=== PATIENT | female | born 1990 | race African-American/Black ===

== ENCOUNTER 2016-08-23 19:33 | Emergency (ER) | payer OTHER ==
--- NOTE | 2016-08-23 20:34 | ER Document Report ---
HPI - HPI Patient complains to provider of: cut left thumb Onset: Just prior to arrival Onset/Duration: Sudden Pain Level: 1 Context: 26-year-old female cut her proximal phalanx left thumb with a knife at work at the [employer] Tetanus has been within the last 5 years. Associated Symptoms: None Exacerbated by: Denies Relieved by: Denies Similar symptoms previously: No Recently seen / treated by doctor: No - ROS ROS below otherwise negative: Yes Systems Reviewed and Negative: Yes All other systems reviewed and negative - REPRODUCTIVE Reproductive: DENIES: : - DERM Skin Color: Normal Past Medical History - General Information source: Patient - Social History Smoking Status: Unknown if Ever Smoked Frequency of alcohol use: None Drug Abuse: None Lives with: Family Family History: Reviewed & Not Pertinent Patient has suicidal ideation: No Patient has homicidal ideation: No - Medical History Medical History: Negative Renal/ Medical History: Denies: Hx Peritoneal Dialysis Surgical Hx: Negative - Immunizations Hx Diphtheria, Pertussis, Tetanus Vaccination: - unknown Vertical Provider Document - CONSTITUTIONAL Agree With Documented VS: Yes Exam Limitations: No Limitations - INFECTION CONTROL TRAVEL OUTSIDE OF THE [place] IN LAST 30 DAYS: No - HEENT HEENT: Normocephalic - NECK Neck: Supple - RESPIRATORY O2 Sat by Pulse Oximetry: 100 - MUSCULOSKELETAL/EXTREMETIES Musculoskeletal/Extremeties: Tender - 1.5 cm full thickness horozontal cut to landrum aspectleft mid proximal phalanx, CAN"T flex at the PIP joint. sensation intact - NEURO Level of Consciousness: Awake, Alert, Appropriate Motor/Sensory: No Sensory Deficit, Other - flexor tendon cut - DERM Integumentary: Warm, Dry, Laceration - see above Course - Re-evaluation Re-evalutation: 08/23/16 20:[address] Hood and then Dr. Fisher who is production control planner for the emergency room, I explained to him that she cut her left thumb flexor tendon and that she cannot flex at the PIP joint. He stated to put her on Keflex, clean the wound closed the wound and splint her in extension. Explained this to the patient and how important it was that she did go to his office 8:00 Wednesday as he instructed. He also stated that she cn call Wednesday to see if Dr. Johnson can see her before Wednesday at 8:00. - Vital Signs Vital signs: Temp Pulse Resp BP Pulse Ox 98.1 F 96 12 124/67 100 08/23/16 19:54 08/23/16 19:54 08/23/16 19:54 08/23/16 19:54 08/23/16 19:54 Procedures - Immobilization Left Thumb Time completed: 22:15 Pre-Proc Neuro Vasc Exam: Normal Immobilizer type: Thumb spica Performed by: Other - TECHNICAL TRAINING COORDINATOR Post-Proc Neuro Vasc Exam: Normal Alignment checked and good: Yes - Laceration/Wound Repair Left Thumb Time completed: 22:03 Wound length (cm): 1.5 Wound's Depth, Shape: Linear, Other - sub q Laceration pre-procedure: Sterile drapes applied, Other - surgiscrub Volume Anesthetic (mLs): 3 Wound explored: Clean Irrigated w/ Saline (mLs): 100 Wound Repaired With: Sutures Suture Size/Type: 4:0, Prolene Number of Sutures: 3 Post-procedure NV exam normal: Yes Complications: No Notes: 08/23/16 22:04 pt is fully aware that she needs tendon repair or she will not be able to bend her thumb at the middle thumb joint. Discharge - Discharge Clinical Impression: left thumb flexor tendon cut, finger laceration Condition: Good Disposition: HOME, SELF-CARE Instructions: Antibiotic Ointment Protection ([facility]), Laceration Care ([facility]), Splint Precautions ([facility]), Temporary Splint ([facility]), Tendon Laceration ([facility]), Tendon Laceration Referral ([facility]), Acetaminophen, Use of Xklv-Fdo-Sprjxzj Ibuprofen ([facility]) Additional Instructions: Call the orthopedic group tomorrow morning and see if Dr. Johnson (hand specialty) can see you before Wednesday at 8:00 Dr. Fisher will see you at 8:00 Wednesday he can just walk in, tell them that I spoke with him over the phone wednesday in consultation. Keep the splint on Please complete the patient satisfaction survey if you get one, and return it.. If you do not receive a survey, then you can go to the [facility] website, [email or web address] and place your comments about your very good care. Thank you very much. It was a pleasure being your medical provider today. Forms: Return to Work Referrals: HANS FISHER MD [ACTIVE STAFF] - Follow up as needed OLIVER JOHNSON DO [ACTIVE STAFF] - Follow up as needed
[2016-08-23] MEDS ORDERED: CEPHALEXIN 500 MG CAPSULE PO ONE (20:54)
[2016-08-23] MEDS ORDERED: LIDOCAINE 1% INJ-PF (10 MG/ML) 30 ML SDV INJ ONE (20:54)
[2016-08-23 22:24] VITALS: BP 122/77
== END 2016-08-23 22:22 | disposition home or self-care (01) ==
LOC: ER 19:33
PROC: 0HQGXZZ Repair Left Hand Skin, External Approach (ICD-10-PCS; principal; 2016-08-23)
DX: S66.022A Laceration of long flexor muscle, fascia and tendon of left thumb at wrist and hand level, initial encounter (principal); S61.012A Laceration without foreign body of left thumb without damage to nail, initial encounter; W26.0XXA Contact with knife, initial encounter; Y93.89 Activity, other specified; Y92.512 Supermarket, store or market as the place of occurrence of the external cause; Y99.0 Civilian activity done for income or pay
CPT/HCPCS: 99283; 12001; J3490

== ENCOUNTER 2016-09-01 14:29 | Day surgery (SDC) | payer OTHER ==
[~2016-09-01 14:29] MED LIST: CEFAZOLIN 2 GM/D5W RTU 2 GM/50 ML RTUPB IV PRN
[2016-09-01] MEDS ORDERED: BUPIVACAINE HCL 0.5 % INJ/PF 30 ML SDV ONE (14:49)
[2016-09-01] MEDS ORDERED: SCOPOLAMINE HYDROBROMIDE 1.5 MG PATCH.TD72 ONE (15:38)
[2016-09-01] MEDS ORDERED: ALBUTEROL SULFATE 0.083% NEB 2.5 MG/3 ML AMPUL NEB ONE (15:39)
[2016-09-01] MEDS ORDERED: RINGERS SOLUTION,LACTATED 1,000 ML IV ONE (16:00)
[2016-09-01] MEDS ORDERED: FENTANYL CITRATE INJ/PF 100 MCG/2 ML AMPUL ONE ×2 (16:35)
[2016-09-01] MEDS ORDERED: MIDAZOLAM 2 MG/2 ML INJ ONE (16:35)
[2016-09-01] MEDS ORDERED: IBUPROFEN INJ 800 MG/8 ML VIAL IV ONE (16:36)
[2016-09-01] MEDS ORDERED: ONDANSETRON HCL INJ/PF 4 MG/2 ML SDV ONE (16:36)
[2016-09-01] MEDS ORDERED: PROPOFOL INJ 200 MG/20 ML VIAL IV ONE (16:36)
[2016-09-01] MEDS ORDERED: DEXAMETHASONE SOD PHOSPHATE INJ 4 MG/1 ML VIAL ONE (16:36)
[2016-09-01] MEDS ORDERED: MEPERIDINE HCL/PF INJ 25 MG/1 ML DISP.SYRIN IV PRN (17:33)
[2016-09-01] MEDS ORDERED: FENTANYL CITRATE INJ/PF 100 MCG/2 ML AMPUL IV PRN ×3 (17:33)
[2016-09-01] MEDS ORDERED: PROMETHAZINE HCL INJ 25 MG/1 ML VIAL IV PRN ×2 (17:33)
[2016-09-01] MEDS ORDERED: ONDANSETRON HCL INJ/PF 4 MG/2 ML SDV IV PRN ×2 (17:33→18:36)
[2016-09-01] MEDS ORDERED: DIPHENHYDRAMINE HCL 50 MG/ML VIAL IV PRN (17:33)
[2016-09-01] MEDS ORDERED: MORPHINE SULFATE 10 MG/ML INJ IV PRN ×2 (17:33→18:36)
[2016-09-01] MEDS ORDERED: OXYCODONE-ACETAMINOPHEN 5-325 MG TABLET PO PRN (18:36)
--- NOTE | 2016-09-01 18:36 | PDOC DISCHARGE SUMMARY ---
Discharge Summary (SDC) - Discharge Final Diagnosis: Left Thumb FPL Laceration, Ulnar Digital Nerve Laceration Date of Surgery: 09/01/16 Discharge Date: 09/01/16 Condition: Good Treatment or Instructions: Schedule Follow Up w/ Dr. Te Johnson @ [facility] to be seen in 10-14 days or as scheduled Murray: Morgan: Shiloh: Keep splint clean/dry/intact. Ice and elevate Stool softener of choice when on pain medication. Prescriptions: Oxycodone HCl/Acetaminophen [Percocet 5-325 mg Tablet] 1 - 2 tab PO ASDIR PRN # 50 tablet PRN Reason: Discharge Diet: As Tolerated Respiratory Treatments at Home: Deep Breathing/Coughing, Incentive Spirometer Discharge Activity: No Lifting Over 10 Pounds, No Lifting/Push/Pulling Report the Following to Your Physician Immediately: Fever over 101 Degrees, Unusual Bleeding, Redness, Swelling, Warmth, Increased Soreness
--- NOTE | 2016-09-01 18:46 | Operative Report ---
Operative Report DATE OF SURGERY: 09/01/16 PREOPERATIVE DIAGNOSIS: Left Thumb FPL Rupture POSTOPERATIVE DIAGNOSIS: Left Thumb Zone II FPL Laceration. Radial Digital Nerve Laceration OPERATION: 1. Repair Left Thumb Zone II FPL Laceration. 2. Repair Radial Digital Nerve Laceration SURGEON: OLIVER STEIN ANESTHESIA: GA COMPLICATIONS: None ESTIMATED BLOOD LOSS: Minimal PROCEDURE: Indication for Above Procedure: 26-year-old female who inadvertently cut her left thumb while at work. Patient was seen at the emergency room where the wound was cleansed and loosely closed. She subsequently followed up at my office at which point we discussed findings on physical examination likely when she sustained a FPL laceration with possible digital nerve involvement. After discussing treatment options including prognosis and postoperative rehabilitation patient verbalized understanding and consented for the procedure. Procedure In Detail: Patient was seen and evaluated in the preoperative holding area. The LEFT upper extremity was initialized and marked. Patient received 2g of Ancef IV for bacterial prophylaxis. Patient was taken back to the operative room where transferred to the operative table and placed under general anesthesia. Once they were adequately anesthetized a nonsterile tourniquet was placed on the upper extremity. A surgical team debriefing was performed ensuring all instrumentation was available, the surgical procedure was discussed with possible concerns reviewed. The upper extremity was prepped with chlorhexidine and alcohol and draped in a sterile fashion. A timeout was done identifying correct patient, procedure and extremity everyone in attendance agree with this and verbalized no concerns. The extremity was exsanguinated the tourniquet was inflated to 250 mmHg. Patient's previous sutures were removed. The incision was extended proximally and distally with a Jenny type incision. Blunt dissection was performed there was complete laceration of the FPL and zone II. There was concomitant radial digital nerve laceration proximal to the trifurcation. With a dilator I dilated the oblique and A2 pulleys. The tendon was found at the level of the A1 bolivar. A portion of the A1 bolivar distally was vented and the tendon retrieved. I was then able to pass the tendon through the A2 and oblique pulleys and secured with a 22-gauge needle. An epitendinous suture was then utilized along the back wall with 2 mm bites using a 6-0 Prolene suture. The 2 ends were then hemostatic and I proceeded with flexor tendon repair. The flexor tendon was repaired with a double-stranded 40 fiber loop suture in a cruciate type configuration providing me a 8 stranded repair. Epitendinous suture was then completed along the volar portion and secured into position. Patient had full range of motion with wrist tenodesis and forearm squeeze there is no evidence of impingement on the A2 bolivar. The wound was then copiously irrigated with normal saline and I proceeded with radial digital nerve repair. The proximal and distal aspect of the radial digital nerve was debrided until normal fascicles were identified. The nerve measured a proximally 3.5 mm and thus a Axogen nerve protector was placed on the back table in saline. The nerve protector was placed along the proximal segment. I then secured the digital nerve with a 8-0 nylon suture this was then reinforced with Tisseel fibrin glue while maintaining reapproximation of the nerve edges without tension. The repair site was then covered with the 3 x 15 mm Axogen nerve protector. I had full passive motion of the IP and MP joints without tension on my nerve repair. The wound was then copiously irrigated with normal saline. Any peripheral vasculature was coagulated bipolar cautery. The skin was closed with interrupted 4-0 chromic gut suture. 20 mL of 0.5% Marcaine without epinephrine was injected for postoperative pain control. Tourniquet was deflated. Patient had good peripheral perfusion of the thumb. Wound was dressed with Xeroform 4 x 4's and patient was placed in a thumb spica plaster splint with the wrist at 20 of flexion and the IP joint at 10 of flexion and MP joint at 30 of flexion. Sponge counts, instrument counts, needle counts counts were correct. Patient was then awoken from anesthesia. Transferred from the operating room table to the operating room stretcher. There was no intraoperative complications patient tolerated procedure well stable to PACU. Postoperative plan: Patient will follow-up in the office in 10-14 days for wound check. She will be started on occupational therapy if we can get this cleared through worker's comp 5 days postoperatively to begin rehabilitation as per flexor tendon protocol zone II.
[2016-09-01 20:09] VITALS: BP 107/68
== END 2016-09-01 22:00 | disposition home or self-care (01) ==
LOC: OROUT 14:29 → 2N 14:29 → OROUT 22:00
PROVIDERS: ATTEND Orthopaedic Surgery
PROC: 01U607Z Supplement Radial Nerve with Autologous Tissue Substitute, Open Approach (ICD-10-PCS; 2016-09-01)
PROC: 0LQ80ZZ Repair Left Hand Tendon, Open Approach (ICD-10-PCS; principal; 2016-09-01 15:30)
DX: S64.22XA Injury of radial nerve at wrist and hand level of left arm, initial encounter (principal); S61.122A Laceration with foreign body of left thumb with damage to nail, initial encounter; S66.022A Laceration of long flexor muscle, fascia and tendon of left thumb at wrist and hand level, initial encounter; W26.0XXA Contact with knife, initial encounter; Y92.69 Other specified industrial and construction area as the place of occurrence of the external cause; F17.210 Nicotine dependence, cigarettes, uncomplicated
CPT/HCPCS: 71010; 26350; 64910; J2250; J1100; J3010; J2405; J2704; J0690; J1741; 1810

== ENCOUNTER → 2016-09-01 | Outpatient (CLI) | payer OTHER ==
[2016-09-01 14:45] LABS: ABSOLUTE EOSINOPHILS # (AUTO) 0.1 10^3/uL (0.0-0.6); ABSOLUTE LYMPHOCYTES (AUTO) 2.5 10^3/uL (0.5-4.7); ABSOLUTE MONOCYTES (AUTO) 0.4 10^3/uL (0.1-1.4); ABSOLUTE NEUT (AUTO) 5.2 10^3/uL (1.7-8.2); BASOPHILS % (AUTO) 0.4 % (0-2); HEMATOCRIT 37.7 % (36.0-47.0); HEMOGLOBIN 12.2 g/dL (12.0-15.5); HGB HCT DIFFERENCE -1.1; LYMPHOCYTES % (AUTO) 30.3 % (13-45); MEAN CORPUSCULAR HEMOGLOBIN 26.9 pg (27.0-33.4); MEAN CORPUSCULAR HGB CONC 32.4 g/dL (32.0-36.0); MEAN CORPUSCULAR VOLUME 83 fl (80-97); MONOCYTES % (AUTO) 5.4 % (3-13); RED BLOOD COUNT 4.54 10^6/uL (3.72-5.28); SEGMENTED NEUTROPHILS % (AUTO) 62.9 % (42-78); WHITE BLOOD COUNT 8.3 10^3/uL (4.0-10.5)
[2016-09-01 15:03] LABS: APPEARANCE,URINE SLIGHTLY-CLOUDY; BILIRUBIN,URINE NEGATIVE (NEGATIVE); GLUCOSE, URINE NEGATIVE (NEGATIVE); KETONES,URINE NEGATIVE (NEGATIVE); LEUKOCYTE ESTERASE,URINE TRACE (NEGATIVE); NITRITE,URINE NEGATIVE (NEGATIVE); PROTEIN,URINE 30 mg/dL (NEGATIVE); URINE SPECIFIC GRAVITY 1.023; UROBILINOGEN,URINE NEGATIVE mg/dL (<2.0)
[2016-09-01 15:05] LABS: ANION GAP 9 (5-19); BLOOD UREA NITROGEN 5 mg/dL (7-20); CALCIUM 9.4 mg/dL (8.4-10.2); CARBON DIOXIDE 26 mmol/L (22-30); CHLORIDE 106 mmol/L (98-107); CREATININE RESULT 0.65 mg/dL (0.52-1.25); GLUCOSE 75 mg/dL (75-110); POTASSIUM 3.8 mmol/L (3.6-5.0); SODIUM 141.4 mmol/L (137-145)
--- NOTE | 2016-09-01 22:11 | EKG REPORT ---
SEVERITY:- OTHERWISE NORMAL ECG - SINUS ARRHYTHMIA, RATE [id number] : Confirmed by: Eveline Solo MD 01-Sep-2016 22:10:35
== END ==
LOC: OD 13:37
PROVIDERS: ATTEND Orthopaedic Surgery
DX: Z01.810 Encounter for preprocedural cardiovascular examination (principal); Z01.812 Encounter for preprocedural laboratory examination; Z01.818 Encounter for other preprocedural examination
CPT/HCPCS: 36415; 80048; 81001; 85025; 93005; 93010